=== PATIENT | female | born 1970 | race Caucasian/White ===

== ENCOUNTER 2019-02-25 11:09 | Inpatient (IN) | payer MEDICAID ==
[~2019-02-25] VITALS: Ht 162.6 cm; Wt 68.9 kg
[2019-02-25 11:15] VITALS: BP_SYST 148
[2019-02-25] MEDS ORDERED: NACL 0.9% 3,000 ML IV ONE (11:30)
[2019-02-25] MEDS ORDERED: INSULIN REGULAR, HUMAN 10 UNITS/0.1 ML INJ IVP ONE (11:30)
[2019-02-25] MEDS ORDERED: PIPERACILLIN/TAZO 3.38 GM in D5W 50 ML IV ONE (11:30)
[2019-02-25] MEDS ORDERED: VANCOMYCIN HCL 1,000 MG in D5W 250 ML IV ONE (11:30)
[2019-02-25 12:08] LABS: BASOPHILS % (AUTO) 0.6 % (0.0-2.0); EOSINOPHILS # (AUTO) 0.3 K/uL (0.0-0.4); EOSINOPHILS % (AUTO) 3.2 % (0.0-4.0); HEMATOCRIT 28.3 % (36-48); HEMOGLOBIN 8.8 g/dL (12.0-16.0); LYMPHOCYTES # (AUTO) 2.2 K/uL (1.0-5.5); LYMPHOCYTES % (AUTO) 26.3 % (20.5-51.5); MEAN CORPUSCULAR HEMOGLOBIN 24 pg (27-31); MEAN CORPUSCULAR HGB CONC 31 % (32-36); MEAN CORPUSCULAR VOLUME 77 fL (79.0-98.0); MONOCYTES # (AUTO) 0.3 K/uL (0.0-1.0); MONOCYTES % (AUTO) 3.6 % (1.7-9.3); NEUTROPHILS # (AUTO) 5.5 K/uL (1.8-7.7); NEUTROPHILS % (AUTO) 66.3 % (40.0-70.0); PLATELET COUNT (AUTO) 252 K/uL (130-430); RED BLOOD CELL COUNT(AUTO) 3.68 MIL/uL (4.2-6.2); RED CELL DISTRIBUTION WIDTH 15.3 % (9.0-15.0); WHITE BLOOD COUNT (AUTO) 8.3 K/uL (4.8-10.8)
[2019-02-25 12:18] LABS: INR 0.9 (0.8-1.2); PROTHROMBIN TIME 8.9 SECS (9.5-12.5)
[2019-02-25 12:24] LABS: ANION GAP 2 (5-15); CALCIUM 8.1 mg/dL (8.4-11.0); CHLORIDE 90 mmol/L (98-107); CREATININE 1.33 mg/dL (0.55-1.30); POTASSIUM 5.2 mmol/L (3.5-5.1); SODIUM SERUM 121 mmol/L (136-145); UREA NITROGEN, BLOOD 29 mg/dL (8-21)
[2019-02-25 12:30] LABS: GFR AFRICAN AMERICAN 54 mL/min (>90); GLUCOSE 724 mg/dL (70-99)
[2019-02-25 12:31] LABS: ACETONE, SERUM SMALL (NEGATIVE)
[2019-02-25] MEDS ORDERED: PIPERACILLIN/TAZOBACTAM 3.375 GM/VIAL (ZOSYN) IV ONE (12:35)
[2019-02-25] MEDS ORDERED: VANCOMYCIN HCL 1000 MG/VIAL IV ONE (13:18)
[2019-02-25] MEDS ORDERED: INSU100I4 SQ (13:22)
[2019-02-25] MEDS ORDERED: INSU100V9 SQ (13:22)
[2019-02-25] MEDS ORDERED: INSULIN REGULAR, HUMAN 100 UNITS/ML, 10 ML VIAL SUBCUT ONE ×2 (14:15→22:00)
[2019-02-25 16:31] VITALS: BP_SYST 118
[2019-02-25] MEDS ORDERED: FLU VACC QS2019-20 36MOS UP/PF 60 MCG/0.5 ML SYRINGE I.M. PRN (17:15)
[2019-02-25] MEDS ORDERED: NACL 0.9% 1,000 ML IV SCH (17:15)
[2019-02-25] MEDS ORDERED: DEXTROSE 50% JECT 50 ML DISP.SYRIN IVP PRN (17:15)
[2019-02-25] MEDS ORDERED: LORazepam 2 MG/ML VIAL IVP PRN (17:30)
[2019-02-25] MEDS ORDERED: ACETAMINOPHEN 325 MG TABLET PO PRN (17:30)
[2019-02-25] MEDS ORDERED: TEMAZEPAM 15 MG CAPSULE PO PRN (17:30)
[2019-02-25] MEDS ORDERED: INSULIN GLARGINE 100 UNITS/ML 10 ML VIAL SUBCUT ONE (17:30)
[2019-02-25] MEDS ORDERED: ONDANSETRON HCL 4 MG/2 ML VIAL IVP PRN (17:30)
[2019-02-25 17:55] LABS: CALCIUM 8.2 mg/dL (8.4-11.0); CREATININE 1.31 mg/dL (0.55-1.30); POTASSIUM 4.7 mmol/L (3.5-5.1)
[2019-02-25] MEDS ORDERED: LORATADINE 10 MG TABLET PO ONE (18:00)
[2019-02-25 20:00] VITALS: BP_SYST 116
[2019-02-25] MEDS ORDERED: cloNIDine HCL 0.1 MG TABLET PO PRN (20:00)
[2019-02-25] MEDS: PIPERACILLIN/TAZO 2.25G/DEX-IS 50 ML IV SCH (21:11)
[2019-02-25] MEDS: NACL 0.9% 1,000 ML IV SCH (21:11)
[2019-02-25] MEDS: INSULIN REGULAR, HUMAN 100 UNITS/ML, 10 ML VIAL (humuLIN R) SUBCUT PRN (21:22)
[2019-02-25] MEDS ORDERED: NS 500 ML IV ONE (22:00)
[2019-02-25] MEDS: MICAFUNGIN SODIUM 100 MG in NS 100 ML IV SCH (22:15)
[2019-02-26] MEDS: NACL 0.9% 1,000 ML IV SCH ×4 (00:37→19:55)
[2019-02-26] MEDS: PIPERACILLIN/TAZO 2.25G/DEX-IS 50 ML IV SCH ×4 (01:23→18:06)
[2019-02-26] MEDS: INSULIN REGULAR, HUMAN 100 UNITS/ML, 10 ML VIAL (humuLIN R) SUBCUT PRN ×5 (01:28→23:11)
[2019-02-26 01:44] VITALS: BP_SYST 119
[2019-02-26 05:24] LABS: BILIRUBIN,URINE NEGATIVE (NEGATIVE); BLOOD, URINE 3+ (NEGATIVE); CLARITY/URINE SL HAZY (CLEAR); COLOR,URINE YELLOW (YELLOW); GLUCOSE,URINE 3+ (NEGATIVE); KETONES,URINE NEGATIVE (NEGATIVE); LEUKOCYTE ESTERASE ,URINE NEGATIVE (NEGATIVE); NITRITE, URINE NEGATIVE (NEGATIVE); PH,URINE 6.5 (5.0-8.0); PROTEIN URINE 2+ (NEGATIVE); UROBILINOGEN,URINE 0.2 (0.2-1.0)
[2019-02-26 05:39] LABS: BACTERIA,URINE FEW /HPF (None Seen); RBC,URINE 20-50 /HPF (0-3)
[2019-02-26 05:41] LABS: BARBITURATE, URINE NEGATIVE (NEG <=200); BENZODIAZEPINE, URINE NEGATIVE (NEG <=150); CANNABINOID, URINE NEGATIVE (NEG <=50); COCAINE, URINE NEGATIVE (NEG <=150); METHAMPHETAMINES SCREEN,URINE NEGATIVE (NEG <=500); OPIATE, URINE NEGATIVE (NEG <=100); PHENCYCLIDINE SCREEN,URINE NEGATIVE (NEG <=25); UR TRICYCLIC ANTIDEPRESSANTS NEGATIVE (NEG <=300); URINE AMPHETAMINE POSITIVE (NEG <=500); URINE METHADONE NEGATIVE (NEG <=200); URINE OXYCODONE SCREEN NEGATIVE (NEG <=100); URINE PROPOXYPHENE SCREEN NEGATIVE (NEG <=300)
[2019-02-26 06:50] LABS: BASOPHILS % (AUTO) 0.7 % (0.0-2.0); EOSINOPHILS # (AUTO) 0.4 K/uL (0.0-0.4); EOSINOPHILS % (AUTO) 6.2 % (0.0-4.0); HEMATOCRIT 25.2 % (36-48); HEMOGLOBIN 8.1 g/dL (12.0-16.0); LYMPHOCYTES # (AUTO) 2.7 K/uL (1.0-5.5); LYMPHOCYTES % (AUTO) 38.4 % (20.5-51.5); MEAN CORPUSCULAR HEMOGLOBIN 24 pg (27-31); MEAN CORPUSCULAR HGB CONC 32 % (32-36); MEAN CORPUSCULAR VOLUME 75 fL (79.0-98.0); MONOCYTES # (AUTO) 0.3 K/uL (0.0-1.0); MONOCYTES % (AUTO) 4.6 % (1.7-9.3); NEUTROPHILS # (AUTO) 3.6 K/uL (1.8-7.7); NEUTROPHILS % (AUTO) 50.1 % (40.0-70.0); PLATELET COUNT (AUTO) 256 K/uL (130-430); RED BLOOD CELL COUNT(AUTO) 3.37 MIL/uL (4.2-6.2); RED CELL DISTRIBUTION WIDTH 15.1 % (9.0-15.0); WHITE BLOOD COUNT (AUTO) 7.1 K/uL (4.8-10.8)
[2019-02-26 07:29] LABS: CALCIUM 8.2 mg/dL (8.4-11.0); CREATININE 1.11 mg/dL (0.55-1.30); PHOSPHORUS 3.2 mg/dL (2.7-4.5); POTASSIUM 4.4 mmol/L (3.5-5.1); TOTAL BILIRUBIN 0.1 mg/dL (0.0-1.0)
[2019-02-26 08:05] VITALS: BP_SYST 164
[2019-02-26] MEDS: LORATADINE 10 MG TABLET PO SCH (08:20)
[2019-02-26] MEDS: INSULIN GLARGINE 100 UNITS/ML 10 ML VIAL SUBCUT SCH (08:21)
[2019-02-26 12:35] VITALS: BP_SYST 159
[2019-02-26 16:13] VITALS: BP_SYST 148
[2019-02-26] MEDS ORDERED: INSULIN GLARGINE 100 UNITS/ML 10 ML VIAL SUBCUT SCH (18:00)
[2019-02-26 20:00] VITALS: BP_SYST 152
[2019-02-26] MEDS: MICAFUNGIN SODIUM 100 MG in NS 100 ML IV SCH (23:00)
[2019-02-27] MEDS: PIPERACILLIN/TAZO 2.25G/DEX-IS 50 ML IV SCH ×2 (00:23→05:58)
[2019-02-27 01:59] VITALS: BP_SYST 114
[2019-02-27] MEDS: INSULIN REGULAR, HUMAN 100 UNITS/ML, 10 ML VIAL (humuLIN R) SUBCUT PRN ×3 (02:28→11:28)
[2019-02-27] MEDS: NACL 0.9% 1,000 ML IV SCH ×2 (02:29→09:00)
[2019-02-27 08:03] VITALS: BP_SYST 135
[2019-02-27] MEDS: LORATADINE 10 MG TABLET PO SCH (08:16)
[2019-02-27] MEDS: INSULIN GLARGINE 100 UNITS/ML 10 ML VIAL SUBCUT SCH (08:59)
[2019-02-27] MEDS ORDERED: CHOLECALCIFEROL (VITAMIN D3) 2,000 UNIT TABLET PO ONE (11:30)
[2019-02-27] MEDS ORDERED: EPOETIN ALFA 4,000 UNITS/ML VIAL SUBCUT ONE (11:30)
[2019-02-27] MEDS ORDERED: MULTIVITS,CA,MINERALS/IRON/FA 1 TABLET PO ONE (11:30)
[2019-02-27] MEDS ORDERED: FLUCONAZOLE 200 mg/ NS 100 ML IV SCH (11:30)
[2019-02-27 11:49] LABS: BASOPHILS # (AUTO) 0.1 K/uL (0.0-0.2); BASOPHILS % (AUTO) 0.9 % (0.0-2.0); EOSINOPHILS # (AUTO) 0.4 K/uL (0.0-0.4); EOSINOPHILS % (AUTO) 5.9 % (0.0-4.0); HEMATOCRIT 26.9 % (36-48); HEMOGLOBIN 8.9 g/dL (12.0-16.0); LYMPHOCYTES # (AUTO) 2.4 K/uL (1.0-5.5); LYMPHOCYTES % (AUTO) 33.4 % (20.5-51.5); MEAN CORPUSCULAR HEMOGLOBIN 25 pg (27-31); MEAN CORPUSCULAR HGB CONC 33 % (32-36); MEAN CORPUSCULAR VOLUME 75 fL (79.0-98.0); MONOCYTES # (AUTO) 0.3 K/uL (0.0-1.0); MONOCYTES % (AUTO) 3.8 % (1.7-9.3); NEUTROPHILS # (AUTO) 4.1 K/uL (1.8-7.7); PLATELET COUNT (AUTO) 252 K/uL (130-430); RED CELL DISTRIBUTION WIDTH 15.1 % (9.0-15.0); WHITE BLOOD COUNT (AUTO) 7.3 K/uL (4.8-10.8)
[2019-02-27 11:54] VITALS: BP_SYST 175
[2019-02-27 12:00] LABS: CALCIUM 8.5 mg/dL (8.4-11.0); CREATININE 1.18 mg/dL (0.55-1.30); POTASSIUM 5.3 mmol/L (3.5-5.1)
[2019-02-27] MEDS ORDERED: SOD FERRIC GLUC COMPLEX/SUC 125 MG in NS 100 ML IV SCH (12:00)
[2019-02-27 12:05] LABS: TOTAL IRON BIND. CAPACITY 310 ug/dL (250-450)
[2019-02-27] MEDS ORDERED: CEFTAROLINE FOSAMIL ACETATE 600 MG in NS 250 ML IV SCH (21:00)
[2019-02-28] MEDS ORDERED: CHOLECALCIFEROL (VITAMIN D3) 2,000 UNIT TABLET PO SCH (09:00)
[2019-02-28] MEDS ORDERED: MULTIVITS,CA,MINERALS/IRON/FA 1 TABLET PO SCH (09:00)
== END 2019-02-27 13:15 | disposition left against medical advice (07) | DRG 420 ==
LOC: SED 11:09 → SMU 13:43 → STU 17:57 → SMU 02-27 12:42
PROVIDERS: ADMIT Internal Medicine; ATTEND Internal Medicine
PROC: 05HY33Z Insertion of Infusion Device into Upper Vein, Percutaneous Approach (ICD-10-PCS; principal; 2019-02-25)
DX: E11.10 Type 2 diabetes mellitus with ketoacidosis without coma (principal); E43 Unspecified severe protein-calorie malnutrition; L03.213 Periorbital cellulitis; F15.10 Other stimulant abuse, uncomplicated; T38.3X6A Underdosing of insulin and oral hypoglycemic [antidiabetic] drugs, initial encounter; F32.9 Major depressive disorder, single episode, unspecified; Z53.29 Procedure and treatment not carried out because of patient's decision for other reasons; Z86.73 Personal history of transient ischemic attack (TIA), and cerebral infarction without residual deficits; Z88.5 Allergy status to narcotic agent; Z91.041 Radiographic dye allergy status; Z59.0 Homelessness; Y92.89 Other specified places as the place of occurrence of the external cause
CPT/HCPCS: 36415; 70450-TC; 71045; 80048; 80053; 80061; 80307; 81000-TC; 82009-TC; 82962; 83036; 83540-TC; 83550-TC; 83605; 83735-TC; 84100-TC; 85025; 85610-TC; 85730-TC; 87040-TC; 87070-TC; 87101; 87186-TC; 87210-TC; 96365; 96366; 96367; 96375; 96376; 97116-GP; 97530-GP; 99285; C1751; G0378; J0712; J0885; J1450; J1815; J2248; J2543; J2916; J3370; J7030; J7040; J7050

== ENCOUNTER 2019-04-01 17:49 | Inpatient (IN) | payer MEDICAID ==
[~2019-04-01] VITALS: Ht 162.6 cm; Wt 68.5 kg
[~2019-04-01 17:49] MED LIST: INSU100I4 SQ; INSU100V9 SQ
[2019-04-01 18:23] VITALS: BP_SYST 159
[2019-04-01 19:22] LABS: BASOPHILS % (AUTO) 0.6 % (0.0-2.0); EOSINOPHILS # (AUTO) 0.2 K/uL (0.0-0.4); HEMATOCRIT 25.2 % (36-48); HEMOGLOBIN 7.8 g/dL (12.0-16.0); LYMPHOCYTES # (AUTO) 1.6 K/uL (1.0-5.5); LYMPHOCYTES % (AUTO) 36.2 % (20.5-51.5); MEAN CORPUSCULAR HEMOGLOBIN 23 pg (27-31); MEAN CORPUSCULAR HGB CONC 31 % (32-36); MEAN CORPUSCULAR VOLUME 75 fL (79.0-98.0); MONOCYTES # (AUTO) 0.3 K/uL (0.0-1.0); MONOCYTES % (AUTO) 7.6 % (1.7-9.3); NEUTROPHILS # (AUTO) 2.3 K/uL (1.8-7.7); NEUTROPHILS % (AUTO) 51.6 % (40.0-70.0); PLATELET COUNT (AUTO) 277 K/uL (130-430); RED BLOOD CELL COUNT(AUTO) 3.36 MIL/uL (4.2-6.2); WHITE BLOOD COUNT (AUTO) 4.5 K/uL (4.8-10.8)
[2019-04-01 19:37] LABS: CALCIUM 8.5 mg/dL (8.4-11.0); CREATININE 1.17 mg/dL (0.55-1.30); POTASSIUM 4.5 mmol/L (3.5-5.1)
[2019-04-01 19:58] LABS: TOTAL BILIRUBIN 0.3 mg/dL (0.0-1.0)
[2019-04-01 19:59] LABS: ALBUMIN 2.7 g/dL (3.4-4.8)
[2019-04-01] MEDS ORDERED: INSULIN REGULAR, HUMAN 10 UNITS/0.1 ML INJ SUBCUT ONE (20:00)
[2019-04-01] MEDS ORDERED: INSU100V SQ (20:44)
[2019-04-01] MEDS ORDERED: HYDR12.5 PO (20:44)
[2019-04-01] MEDS ORDERED: LISI-600 PO (20:44)
[2019-04-01] MEDS ORDERED: FERR-69 PO (20:44)
[2019-04-01] MEDS ORDERED: ALBMDI INH (20:44)
[2019-04-01] MEDS ORDERED: INSU100I26 SQ (20:44)
[2019-04-01] MEDS ORDERED: ACETAMINOPHEN 325 MG TABLET PO PRN (22:30)
[2019-04-01] MEDS ORDERED: ONDANSETRON HCL 4 MG/2 ML VIAL IVP PRN (22:30)
[2019-04-01 23:01] LABS: INR 0.9 (0.8-1.2); PROTHROMBIN TIME 9.4 SECS (9.5-12.5)
[2019-04-01 23:05] LABS: TOTAL IRON BIND. CAPACITY 372 ug/dL (250-450)
[2019-04-01 23:12] LABS: FREE T4 (FREE THYROXINE) 1.4 ng/dl (0.8-1.5); PHOSPHORUS 4.2 mg/dL (2.7-4.5); THYROID STIMULATING HORMONE 2.18 uIu/mL (0.36-3.74)
[2019-04-02] MEDS: NACL 0.9% 1,000 ML IV SCH ×2 (00:32→08:28)
[2019-04-02 01:22] VITALS: BP_SYST 150
[2019-04-02] MEDS: INSULIN REGULAR, HUMAN 100 UNITS/ML, 10 ML VIAL (humuLIN R) SUBCUT PRN ×4 (06:03→20:50)
[2019-04-02 06:37] LABS: CALCIUM 8.3 mg/dL (8.4-11.0); CREATININE 0.91 mg/dL (0.55-1.30); POTASSIUM 4.1 mmol/L (3.5-5.1)
[2019-04-02 07:15] LABS: BASOPHILS % (AUTO) 0.8 % (0.0-2.0); EOSINOPHILS # (AUTO) 0.3 K/uL (0.0-0.4); EOSINOPHILS % (AUTO) 6.7 % (0.0-4.0); HEMATOCRIT 22.5 % (36-48); HEMOGLOBIN 7.1 g/dL (12.0-16.0); LYMPHOCYTES % (AUTO) 44.7 % (20.5-51.5); MEAN CORPUSCULAR HEMOGLOBIN 24 pg (27-31); MEAN CORPUSCULAR HGB CONC 31 % (32-36); MEAN CORPUSCULAR VOLUME 75 fL (79.0-98.0); MONOCYTES # (AUTO) 0.3 K/uL (0.0-1.0); MONOCYTES % (AUTO) 7.3 % (1.7-9.3); NEUTROPHILS # (AUTO) 1.8 K/uL (1.8-7.7); NEUTROPHILS % (AUTO) 40.5 % (40.0-70.0); PLATELET COUNT (AUTO) 243 K/uL (130-430); RED CELL DISTRIBUTION WIDTH 19.2 % (9.0-15.0); WHITE BLOOD COUNT (AUTO) 4.5 K/uL (4.8-10.8)
[2019-04-02] MEDS: DOCUSATE SODIUM 100 MG CAPSULE PO SCH (09:00)
[2019-04-02 12:08] VITALS: BP_SYST 153
[2019-04-02] MEDS ORDERED: SOD FERRIC GLUC COMPLEX/SUC 125 MG in NS 100 ML IV SCH (14:00)
[2019-04-02] MEDS ORDERED: HYDROCHLOROTHIAZIDE 12.5 MG CAPSULE (HCTZ) PO ONE (16:15)
[2019-04-02] MEDS ORDERED: hydrALAZINE HCL 20 MG/ML VIAL IVP PRN (16:15)
[2019-04-02 16:40] VITALS: BP_SYST 167
[2019-04-02] MEDS ORDERED: LISINOPRIL 20 MG TABLET PO ONE (17:00)
[2019-04-02 17:24] LABS: BILIRUBIN,URINE NEGATIVE (NEGATIVE); BLOOD, URINE 3+ (NEGATIVE); CLARITY/URINE CLOUDY (CLEAR); COLOR,URINE RED (YELLOW); GLUCOSE,URINE 3+ (NEGATIVE); KETONES,URINE NEGATIVE (NEGATIVE); LEUKOCYTE ESTERASE ,URINE NEGATIVE (NEGATIVE); NITRITE, URINE NEGATIVE (NEGATIVE); PROTEIN URINE 3+ (NEGATIVE); UROBILINOGEN,URINE 0.2 (0.2-1.0)
[2019-04-02 17:44] LABS: HCG,QUAL RESULT NEGATIVE (NEGATIVE)
[2019-04-02 17:55] LABS: BACTERIA,URINE FEW /HPF (None Seen); RBC,URINE >100 /HPF (0-3)
[2019-04-02 17:56] LABS: BARBITURATE, URINE NEGATIVE (NEG <=200); BENZODIAZEPINE, URINE NEGATIVE (NEG <=150); CANNABINOID, URINE NEGATIVE (NEG <=50); COCAINE, URINE NEGATIVE (NEG <=150); METHAMPHETAMINES SCREEN,URINE POSITIVE (NEG <=500); OPIATE, URINE NEGATIVE (NEG <=100); PHENCYCLIDINE SCREEN,URINE NEGATIVE (NEG <=25); URINE AMPHETAMINE POSITIVE (NEG <=500); URINE METHADONE NEGATIVE (NEG <=200)
[2019-04-02 17:56] LABS: MUCUS,URINE None Seen /LPF (None Seen)
[2019-04-02 17:57] LABS: UR TRICYCLIC ANTIDEPRESSANTS NEGATIVE (NEG <=300); URINE OXYCODONE SCREEN NEGATIVE (NEG <=100); URINE PROPOXYPHENE SCREEN NEGATIVE (NEG <=300)
[2019-04-02 20:00] VITALS: BP_SYST 152
[2019-04-02] MEDS: INSULIN GLARGINE 100 UNITS/ML 10 ML VIAL SQ SCH (20:52)
[2019-04-02] MEDS: FERROUS SULFATE 325 MG TABLET.DR PO SCH (20:54)
[2019-04-03 01:17] VITALS: BP_SYST 155
[2019-04-03] MEDS: DOCUSATE SODIUM 100 MG CAPSULE PO SCH (09:00)
[2019-04-03] MEDS ORDERED: MORPHINE 2 MG/ML INJ. SYRINGE ONE (18:33)
[2019-04-04] MEDS ORDERED: MORPHINE 2 MG/ML INJ. SYRINGE ONE (14:17)
[2019-04-04] MEDS ORDERED: metFORMIN HCL 500 MG TABLET ONE (20:08)
[2019-04-05 01:42] VITALS: BP_SYST 115
[2019-04-05] MEDS: FERROUS SULFATE 325 MG TABLET.DR PO SCH (09:54)
[2019-04-05] MEDS: LISINOPRIL 20 MG TABLET PO SCH (09:54)
[2019-04-05] MEDS: metFORMIN HCL 500 MG TABLET PO SCH ×2 (09:56→18:38)
[2019-04-05] MEDS: HYDROCHLOROTHIAZIDE 12.5 MG CAPSULE (HCTZ) PO SCH (09:57)
[2019-04-05] MEDS: MORPHINE 2 MG/ML INJ. SYRINGE IVP PRN (10:36)
[2019-04-05] MEDS ORDERED: MECLIZINE HCL 25 MG TABLET (ANITVERT) PO PRN (11:15)
[2019-04-05 12:00] VITALS: BP_SYST 111
[2019-04-05] MEDS: INSULIN REGULAR, HUMAN 100 UNITS/ML, 10 ML VIAL (humuLIN R) SUBCUT PRN ×2 (12:25→18:37)
[2019-04-05 17:37] VITALS: BP_SYST 107
[2019-04-05 20:00] VITALS: BP_SYST 119
[2019-04-06 01:20] VITALS: BP_SYST 149
[2019-04-06 08:23] LABS: BASOPHILS % (AUTO) 0.3 % (0.0-2.0); EOSINOPHILS # (AUTO) 0.4 K/uL (0.0-0.4); EOSINOPHILS % (AUTO) 4.4 % (0.0-4.0); HEMATOCRIT 28.1 % (36-48); HEMOGLOBIN 9.1 g/dL (12.0-16.0); LYMPHOCYTES # (AUTO) 1.3 K/uL (1.0-5.5); MEAN CORPUSCULAR HEMOGLOBIN 24 pg (27-31); MEAN CORPUSCULAR HGB CONC 32 % (32-36); MEAN CORPUSCULAR VOLUME 75 fL (79.0-98.0); MONOCYTES # (AUTO) 0.6 K/uL (0.0-1.0); MONOCYTES % (AUTO) 6.5 % (1.7-9.3); NEUTROPHILS # (AUTO) 6.5 K/uL (1.8-7.7); NEUTROPHILS % (AUTO) 73.8 % (40.0-70.0); PLATELET COUNT (AUTO) 267 K/uL (130-430); RED BLOOD CELL COUNT(AUTO) 3.74 MIL/uL (4.2-6.2); RED CELL DISTRIBUTION WIDTH 19.3 % (9.0-15.0); WHITE BLOOD COUNT (AUTO) 8.8 K/uL (4.8-10.8)
[2019-04-06 08:29] LABS: CALCIUM 8.9 mg/dL (8.4-11.0); CREATININE 0.95 mg/dL (0.55-1.30); POTASSIUM 4.4 mmol/L (3.5-5.1)
[2019-04-06] MEDS: metFORMIN HCL 500 MG TABLET PO SCH (08:30)
[2019-04-06] MEDS: FERROUS SULFATE 325 MG TABLET.DR PO SCH ×2 (08:42→23:15)
[2019-04-06] MEDS: DOCUSATE SODIUM 100 MG CAPSULE PO SCH (08:43)
[2019-04-06] MEDS: LISINOPRIL 20 MG TABLET PO SCH (08:44)
[2019-04-06] MEDS: HYDROCHLOROTHIAZIDE 12.5 MG CAPSULE (HCTZ) PO SCH (08:49)
[2019-04-06 11:38] VITALS: BP_SYST 153
[2019-04-06 16:32] VITALS: BP_SYST 144
[2019-04-06 20:00] VITALS: BP_SYST 140; BP_SYST 144
[2019-04-06] MEDS: INSULIN GLARGINE 100 UNITS/ML 10 ML VIAL SQ SCH (21:00)
[2019-04-06] MEDS ORDERED: VANCOMYCIN HCL 250 MG CAPSULE PO SCH (23:00)
[2019-04-07] MEDS: CEPHALEXIN 500 MG CAPSULE PO SCH ×2 (00:35→07:05)
[2019-04-07] MEDS: INSULIN REGULAR, HUMAN 100 UNITS/ML, 10 ML VIAL (humuLIN R) SUBCUT PRN ×3 (06:45→23:24)
[2019-04-07 08:00] VITALS: BP_SYST 115
[2019-04-07] MEDS ORDERED: VANCOMYCIN HCL ORAL SOLUTION 250 MG/5 ML, 80 ML PO SCH (09:00)
[2019-04-07] MEDS ORDERED: VANCOMYCIN HCL 250 MG CAPSULE PO SCH (09:00)
[2019-04-07] MEDS: metFORMIN HCL 500 MG TABLET PO SCH ×2 (09:09→17:09)
[2019-04-07] MEDS: DOCUSATE SODIUM 100 MG CAPSULE PO SCH (09:10)
[2019-04-07] MEDS: FERROUS SULFATE 325 MG TABLET.DR PO SCH ×2 (09:10→22:28)
[2019-04-07] MEDS: LISINOPRIL 20 MG TABLET PO SCH (09:10)
[2019-04-07] MEDS: HYDROCHLOROTHIAZIDE 12.5 MG CAPSULE (HCTZ) PO SCH (09:11)
[2019-04-07 12:13] VITALS: BP_SYST 144
[2019-04-07] MEDS: cefTRIAXone 1 GM in D5W 50 ML IV SCH (15:08)
[2019-04-07] MEDS: VANCOMYCIN HCL 750 MG in NS 250 ML IV SCH (15:08)
[2019-04-07 16:12] VITALS: BP_SYST 132
[2019-04-07] MEDS: MORPHINE 2 MG/ML INJ. SYRINGE IVP PRN (17:08)
[2019-04-07 20:00] VITALS: BP_SYST 140
[2019-04-07] MEDS ORDERED: traZODone HCL 50 MG TABLET (DESYREL) PO SCH (21:00)
[2019-04-08 00:48] VITALS: BP_SYST 164
[2019-04-08] MEDS: VANCOMYCIN HCL 750 MG in NS 250 ML IV SCH ×2 (02:00→15:09)
[2019-04-08] MEDS: MORPHINE 2 MG/ML INJ. SYRINGE IVP PRN ×2 (05:09→07:13)
[2019-04-08] MEDS: INSULIN REGULAR, HUMAN 100 UNITS/ML, 10 ML VIAL (humuLIN R) SUBCUT PRN (07:06)
[2019-04-08] MEDS: metFORMIN HCL 500 MG TABLET PO SCH (08:30)
[2019-04-08] MEDS: HYDROCHLOROTHIAZIDE 12.5 MG CAPSULE (HCTZ) PO SCH (09:00)
[2019-04-08] MEDS: LISINOPRIL 20 MG TABLET PO SCH (09:00)
[2019-04-08] MEDS: DOCUSATE SODIUM 100 MG CAPSULE PO SCH (10:28)
[2019-04-08] MEDS: FERROUS SULFATE 325 MG TABLET.DR PO SCH (10:28)
[2019-04-08] MEDS: cefTRIAXone 1 GM in D5W 50 ML IV SCH (10:29)
[2019-04-08 12:15] VITALS: BP_SYST 118
[2019-04-08 16:07] VITALS: BP_SYST 108
[2019-04-15 11:41] LABS: CALCIUM 8.7 mg/dL (8.4-11.0); CREATININE 0.88 mg/dL (0.55-1.30); POTASSIUM 4.2 mmol/L (3.5-5.1)
[2019-04-15 11:42] LABS: CALCIUM 8.7 mg/dL (8.4-11.0); POTASSIUM 4.2 mmol/L (3.5-5.1)
[2019-04-15 11:43] LABS: CREATININE 0.88 mg/dL (0.55-1.30); PHOSPHORUS 3.8 mg/dL (2.7-4.5)
[2019-04-15 11:43] LABS: HEMATOCRIT 23.5 % (36-48); HEMOGLOBIN 7.4 g/dL (12.0-16.0); MEAN CORPUSCULAR HEMOGLOBIN 24 pg (27-31); MEAN CORPUSCULAR VOLUME 75 fL (79.0-98.0); RED BLOOD CELL COUNT(AUTO) 3.12 MIL/uL (4.2-6.2); WHITE BLOOD COUNT (AUTO) 5.7 K/uL (4.8-10.8)
[2019-04-15 11:44] LABS: BASOPHILS % (AUTO) 0.6 % (0.0-2.0); EOSINOPHILS % (AUTO) 6.7 % (0.0-4.0); LYMPHOCYTES % (AUTO) 38.7 % (20.5-51.5); MEAN CORPUSCULAR HGB CONC 31 % (32-36); MONOCYTES % (AUTO) 5.3 % (1.7-9.3); NEUTROPHILS % (AUTO) 48.7 % (40.0-70.0); PLATELET COUNT (AUTO) 281 K/uL (130-430); RED CELL DISTRIBUTION WIDTH 19.1 % (9.0-15.0)
[2019-04-15 11:45] LABS: HEMATOCRIT 23.5 % (36-48); HEMOGLOBIN 7.4 g/dL (12.0-16.0); LYMPHOCYTES % (AUTO) 38.7 % (20.5-51.5); MEAN CORPUSCULAR HEMOGLOBIN 24 pg (27-31); MEAN CORPUSCULAR HGB CONC 31 % (32-36); MEAN CORPUSCULAR VOLUME 75 fL (79.0-98.0); NEUTROPHILS % (AUTO) 48.7 % (40.0-70.0); PLATELET COUNT (AUTO) 281 K/uL (130-430); RED BLOOD CELL COUNT(AUTO) 3.12 MIL/uL (4.2-6.2); RED CELL DISTRIBUTION WIDTH 19.1 % (9.0-15.0); WHITE BLOOD COUNT (AUTO) 5.7 K/uL (4.8-10.8)
[2019-04-15 11:46] LABS: BASOPHILS % (AUTO) 0.6 % (0.0-2.0); EOSINOPHILS % (AUTO) 6.7 % (0.0-4.0); MONOCYTES % (AUTO) 5.3 % (1.7-9.3)
== END 2019-04-08 16:48 | disposition left against medical advice (07) | DRG 463 ==
LOC: SED 17:49 → SMU 22:06
PROVIDERS: ADMIT Family Medicine; ATTEND Family Medicine
DX: N39.0 Urinary tract infection, site not specified (principal); E11.00 Type 2 diabetes mellitus with hyperosmolarity without nonketotic hyperglycemic-hyperosmolar coma (NKHHC); S05.72XA Avulsion of left eye, initial encounter; E44.0 Moderate protein-calorie malnutrition; B96.1 Klebsiella pneumoniae [K. pneumoniae] as the cause of diseases classified elsewhere; D50.9 Iron deficiency anemia, unspecified; F15.10 Other stimulant abuse, uncomplicated; F32.9 Major depressive disorder, single episode, unspecified; Z53.29 Procedure and treatment not carried out because of patient's decision for other reasons; R62.7 Adult failure to thrive; X58.XXXA Exposure to other specified factors, initial encounter; Z59.0 Homelessness; Z86.73 Personal history of transient ischemic attack (TIA), and cerebral infarction without residual deficits; Z91.19 Patient's noncompliance with other medical treatment and regimen; Z68.25 Body mass index [BMI] 25.0-25.9, adult; Z79.899 Other long term (current) drug therapy; Z88.5 Allergy status to narcotic agent; Z91.041 Radiographic dye allergy status; Y93.89 Activity, other specified; Y92.89 Other specified places as the place of occurrence of the external cause; Y99.8 Other external cause status
CPT/HCPCS: 36415; 71045; 80048; 80053; 80061; 80307; 81000-TC; 82150-TC; 82550-TC; 82962; 83036; 83540-TC; 83550-TC; 83690-TC; 83735-TC; 83880; 84100-TC; 84439; 84443-TC; 84484; 84703; 85025; 85610-TC; 85730-TC; 86886; 86900; 86901; 87070-TC; 87081; 87186-TC; 93005; 96372; 99285; J0696; J1815; J2270; J2916; J3370; J7030; J7050; J7060

== ENCOUNTER 2019-07-01 23:08 | Emergency (ER) | payer MEDICAID ==
[~2019-07-01] VITALS: Ht 162.6 cm; Wt 63.5 kg
[2019-07-01 23:08] VITALS: BP_SYST 189
[~2019-07-01 23:08] MED LIST changes: +ALBMDI INH; +FERR-69 PO; +HYDR12.5 PO; +INSU100I26 SQ; +INSU100V SQ; +LISI-600 PO
--- NOTE | 2019-07-01 23:12 | NUR ---
Patient triaged waiting on ambulance [facility]. VSS and patient appears in no acute distress at this time. Accompanied by paramedics, awaiting available bed, and MD notified of need for MSE.
--- NOTE | 2019-07-01 23:15 | NUR ---
ER at bedside examining patient.
--- NOTE | 2019-07-01 23:15 | NUR ---
Pt brought in by S ambulance. Pt awake, alert, oriented x4. Agitated. Pt states that she is staying at the [facility] where she living, when she had cramping and leg pain. Pt denies chest pain, nausea, vomiting, diarrhea, any other medical complaint at this time. Ptresting in ED bed comfortably, no acute distress.
[2019-07-01] MEDS ORDERED: KETOROLAC TROMETHAMINE 30 MG VIAL IM ONE (23:45)
--- NOTE | 2019-07-02 00:14 | NUR ---
Pt resting in ED bed. no distress. Awaiting lab results.
[2019-07-02 00:55] LABS: BASOPHILS % (AUTO) 0.6 % (0.0-2.0); EOSINOPHILS # (AUTO) 0.4 K/uL (0.0-0.4); EOSINOPHILS % (AUTO) 6.3 % (0.0-4.0); HEMOGLOBIN 9.3 g/dL (12.0-16.0); LYMPHOCYTES # (AUTO) 2.2 K/uL (1.0-5.5); LYMPHOCYTES % (AUTO) 32.6 % (20.5-51.5); MEAN CORPUSCULAR HEMOGLOBIN 27 pg (27-31); MEAN CORPUSCULAR HGB CONC 33 % (32-36); MEAN CORPUSCULAR VOLUME 81 fL (79.0-98.0); MONOCYTES # (AUTO) 0.5 K/uL (0.0-1.0); MONOCYTES % (AUTO) 7.6 % (1.7-9.3); NEUTROPHILS # (AUTO) 3.5 K/uL (1.8-7.7); NEUTROPHILS % (AUTO) 52.9 % (40.0-70.0); PLATELET COUNT (AUTO) 301 K/uL (130-430); RED BLOOD CELL COUNT(AUTO) 3.43 MIL/uL (4.2-6.2); RED CELL DISTRIBUTION WIDTH 16.6 % (9.0-15.0); WHITE BLOOD COUNT (AUTO) 6.6 K/uL (4.8-10.8)
[2019-07-02 01:13] LABS: CALCIUM 9.6 mg/dL (8.4-11.0); CREATININE 1.43 mg/dL (0.55-1.30)
[2019-07-02 01:15] LABS: PROTHROMBIN TIME 9.8 SECS (9.5-12.5)
[2019-07-02 01:30] LABS: ALBUMIN 3.4 g/dL (3.4-4.8); TOTAL BILIRUBIN 0.3 mg/dL (0.0-1.0)
--- NOTE | 2019-07-02 01:30 | NUR ---
Pt resting in ED bed comfortably. No acute distress.
[2019-07-02 03:51] LABS: BILIRUBIN,URINE NEGATIVE (NEGATIVE); BLOOD, URINE 2+ (NEGATIVE); CLARITY/URINE CLEAR (CLEAR); COLOR,URINE YELLOW (YELLOW); GLUCOSE,URINE 3+ (NEGATIVE); KETONES,URINE NEGATIVE (NEGATIVE); LEUKOCYTE ESTERASE ,URINE 1+ (NEGATIVE); NITRITE, URINE NEGATIVE (NEGATIVE); PROTEIN URINE 2+ (NEGATIVE); UROBILINOGEN,URINE 0.2 (0.2-1.0)
--- NOTE | 2019-07-02 03:55 | NUR ---
Pt states that she would need transportation back to her place of residence [address] [place] [address]. Pt Provided with transportation voucher per request. Pt states at this current time she has no ride home.
[2019-07-02 03:56] VITALS: BP_SYST 167
[2019-07-02 03:56] LABS: BACTERIA,URINE MANY /HPF (None Seen)
--- NOTE | 2019-07-02 03:56 | NUR ---
Spoke with Raheel Hahn at the request of patient. He states that he will be waiting for patient in room 160 of the [facility].
--- NOTE | 2019-07-02 03:56 | NUR ---
Patient given written and verbal discharge instructions and verbalizes understanding. ER MD discussed with patient the results and treatment provided. Patient in stable condition. ID arm band removed. no iv No RX given. Patient educated on pain management and to follow up with PMD. Pain Scale 2/10. Opportunity for questions provided and answered.
== END 2019-07-02 03:56 | disposition home or self-care (01) ==
LOC: SED 23:08
DX: N39.0 Urinary tract infection, site not specified (principal); M62.831 Muscle spasm of calf; E11.9 Type 2 diabetes mellitus without complications; J45.909 Unspecified asthma, uncomplicated; F17.200 Nicotine dependence, unspecified, uncomplicated; Z86.79 Personal history of other diseases of the circulatory system; Z90.01 Acquired absence of eye; Z88.5 Allergy status to narcotic agent; Z88.8 Allergy status to other drugs, medicaments and biological substances
CPT/HCPCS: 36415; 80053; 81000; 83605; 83690; 85025; 85610; 87040; 87086; 87186; 96372; 99283; J1885